=== PATIENT | female | born 1995 | race Caucasian/White ===

== ENCOUNTER 2019-07-09 18:02 | Emergency (ER) | payer BC ==
[2019-07-09] MEDS ORDERED: FAMOTIDINE 20 MG TABLET PO ONE (18:52)
[2019-07-09] MEDS ORDERED: DIPHENHYDRAMINE HCL 50 MG CAPSULE PO ONE (18:54)
--- NOTE | 2019-07-09 18:59 | ER Document Report ---
ED Medical Screen (RME) - General Chief Complaint: Hives Stated Complaint: HIVES Time Seen by Provider: 07/09/19 18:45 Notes: Patient is a 23-year-old female who presents the emergency department with a chief complaint of rash and hives. Patient states that she started with her hives about 3 days ago. She states that she has some shortness of breath. Patient has a past medical history of psoriatic arthritis. She states that she might of had an exposure for up to a new laundry detergent. Patient was also recently diagnosed with a urinary tract infection with group B strep and was placed on amoxicillin and Bactrim. She was also seen by urgent care yesterday and was placed on steroids. She is currently taking them. Patient currently takes Cosentyx and Paxil. Exam: Erythematous rash noted to entire body. Airway patent. Clear breath sounds throughout. I have greeted and performed a rapid initial assessment of this patient. A comprehensive ED assessment and evaluation of the patient, analysis of test results and completion of medical decision making process will be conducted by an additional ED providers. - Related Data Allergies/Adverse Reactions: No Known Allergies Allergy (Unverified 07/09/19 18:46) Physical Exam - Vital signs Vitals: Temp Pulse Resp BP Pulse Ox 98.4 F 83 20 114/74 98 07/09/19 18:13 07/09/19 18:13 07/09/19 18:13 07/09/19 18:13 07/09/19 18:13 Course - Vital Signs Vital signs: Temp Pulse Resp BP Pulse Ox 98.4 F 83 20 114/74 98 07/09/19 18:13 07/09/19 18:13 07/09/19 18:13 07/09/19 18:13 07/09/19 18:13
--- NOTE | 2019-07-09 19:10 | ER Document Report ---
ED Allergic Reaction - General Chief Complaint: Rash Stated Complaint: HIVES Time Seen by Provider: 07/09/19 18:45 Primary Care Provider: MILTON MAGUIRE DO [ACTIVE STAFF] - Follow up in 3-5 days JOSE BLACK MD [Primary Care Provider] - Follow up tomorrow TRAVEL OUTSIDE OF THE [place] IN LAST 30 DAYS: No - HPI Notes: 23-year-old female to the emergency department with complaints of hives that has been getting worse since yesterday. She states that she is currently taking Bactrim and amoxicillin for a group B infection. She states that she was put on these medicines after she presented to clinic with complaints of urinary tract infection. She states that her urinalysis was negative but culture revealed group B. She states that she is taken amoxicillin and Bactrim before and never had a problem. However about 2 days ago she broke out into this diffuse itchy rash. She states that she went to urgent care yesterday. She states that they started her on prednisone 20 mg tablets. She states that she was given a shot of steroids in office. She states that she has taken 20 mg of prednisone today. States she was not told to stop the antibiotics. She denies any difficulty swallowing or shortness of breath. She does admit that she is developed a sore throat in the past 2 days. She denies any nausea or vomiting or diarrhea. She denies any chest pain. She states that her dysuria did improve but now she is having a little bit more. Denies any fevers or chills. States that the rash is intensely itchy. - Related Data Allergies/Adverse Reactions: No Known Allergies Allergy (Unverified 07/09/19 18:46) Past Medical History - General Information source: Patient - Social History Smoking Status: Never Smoker Chew tobacco use (# tins/day): No Frequency of alcohol use: None Drug Abuse: None Lives with: Spouse/Significant other Family History: None Patient has suicidal ideation: No Patient has homicidal ideation: No Review of Systems - Review of Systems Constitutional: denies: Chills, Fever EENT: No symptoms reported Cardiovascular: denies: Chest pain, Palpitations, Orthopnea, Dyspnea, Syncope, Dizziness, Lightheaded Respiratory: denies: Cough, Short of breath Gastrointestinal: denies: Abdominal pain, Diarrhea, Nausea, Vomiting Genitourinary: Dysuria. denies: Frequency, Pain, Urgency Female Genitourinary: No symptoms reported Musculoskeletal: No symptoms reported Skin: See HPI, Rash Hematologic/Lymphatic: No symptoms reported Neurological/Psychological: denies: Weakness, Numbness, Tingling -: Yes All other systems reviewed and negative Physical Exam - Vital signs Vitals: Temp Pulse Resp BP Pulse Ox 98.4 F 83 20 114/74 98 07/09/19 18:13 07/09/19 18:13 07/09/19 18:13 07/09/19 18:13 07/09/19 18:13 Interpretation: Normal - General General appearance: Appears well, Alert In distress: None - HEENT Head: Normocephalic, Atraumatic Eyes: Normal Pupils: PERRL Ears: Normal External canal: Normal Tympanic membrane: Normal Sinus: Normal Nasal: Normal Mouth/Lips: Normal. No: Angioedema Mucous membranes: Normal Pharynx: Normal. No: Peritonsillar abscess, Post nasal drainage, Retropharyngeal abscess, Tonsillar hypertrophy, Uvular edema, Potential airway comprom. Neck: Normal, Supple. No: Lymphadenopathy Notes: no Alli's angina, no drooling, airway is grossly patent. - Respiratory Respiratory status: No respiratory distress Chest status: Nontender Breath sounds: Normal. No: Decreased air movement, Nonproductive cough, Rales, Rhonchi, Stridor, Wheezing Chest palpation: Normal - Cardiovascular Rhythm: Regular Heart sounds: Normal auscultation Murmur: No - Abdominal Inspection: Normal Distension: No distension Bowel sounds: Normal Tenderness: Nontender Organomegaly: No organomegaly - Back Back: Normal, Nontender. No: CVA tenderness - Skin Skin Temperature: Warm Skin Moisture: Dry Skin irregularity: Rash - There are diffuse erythematous macules to the arms and legs -- some appear to coalesce and all do josephine. There appears to wheal like appearances to some of these macules and some looks like erythema multiforme. There is no vesicular pattern. there is no sloughing of the skin. there is NO oral mucosal involvement. Patient does not report any pain with palpation Course - Re-evaluation Re-evalutation: 07/09/19 20:22 IMpression: Allergic reaction -- most concerning for an erythema multiforme vs urticaria. Suspect this is from one of the Antibiotics that the patient has been placed on. There are no oral lesions and there is no ulcerations to suggest SJS. She has completed the Bactrim, but still has some time on the Amoxicillin. Will encourage her to stop this medicine. Will start on a higher dose steroid. Will also cover with Atarax and pepcid. Will give follow up with dermatology. URged to return if symptoms worsen. Patient agrees with the plan. - Vital Signs Vital signs: Temp Pulse Resp BP Pulse Ox 98.4 F 83 20 114/74 98 07/09/19 18:13 07/09/19 18:13 07/09/19 18:13 07/09/19 18:13 07/09/19 18:13 Discharge - Discharge Clinical Impression: Allergic dermatitis, EM (erythema multiforme) Condition: Stable Disposition: HOME, SELF-CARE Instructions: Acute Allergic Reaction ([facility]) Additional Instructions: STOP ALL ANTIBIOTICS. RETURN IMMEDIATELY IF WORSENING RASH, PAIN WITH THE RASH, OR ORAL INVOLVEMENT OF THE RASH. STOP ALL ANTIBIOTICS. FOLLOW UP WITH DERMATOLOGY WITHOUT FAIL -- CALL TOMORROW. Prescriptions: Hydroxyzine HCl [Atarax 25 mg Tablet] 1 - 2 tab PO QID #25 tablet Prednisone [Deltasone 10 mg Tablet] 10 mg PO ASDIR PRN #21 tablet PRN Reason: Famotidine [Pepcid 20 mg Tablet] 20 mg PO BID #12 tablet Forms: Return to Work Referrals: JOSE BLACK MD [Primary Care Provider] - Follow up tomorrow MILTON AMGUIRE DO [ACTIVE STAFF] - Follow up in 3-5 days
[2019-07-09] MEDS ORDERED: METHYLPREDNISOLONE INJ 125 MG/2 ML SDV IM ONE (19:51)
[2019-07-09 20:54] LABS: APPEARANCE,URINE SLIGHTLY-CLOUDY; BILIRUBIN,URINE NEGATIVE (NEGATIVE); COLOR,URINE YELLOW; GLUCOSE, URINE NEGATIVE (NEGATIVE); KETONES,URINE TRACE mg/dL (NEGATIVE); LEUKOCYTE ESTERASE,URINE NEGATIVE (NEGATIVE); NITRITE,URINE NEGATIVE (NEGATIVE); PROTEIN,URINE NEGATIVE (NEGATIVE); URINE SPECIFIC GRAVITY 1.035
[2019-07-09 21:08] VITALS: BP 110/74
== END 2019-07-09 21:00 | disposition home or self-care (01) ==
LOC: ER 18:02
DX: L23.9 Allergic contact dermatitis, unspecified cause (principal); L51.9 Erythema multiforme, unspecified; R21 Rash and other nonspecific skin eruption; Z79.899 Other long term (current) drug therapy
CPT/HCPCS: 36415; 87070; 87086; 87880; 86308; 81001; J2930; 96372; 99283

== ENCOUNTER 2019-09-17 18:11 | Emergency (ER) | payer BC ==
[2019-09-17 18:16] VITALS: BP 141/86
--- NOTE | 2019-09-17 19:05 | ER Document Report ---
HPI - HPI Time Seen by Provider: 09/17/19 18:42 Pain Level: Denies Notes: Otherwise healthy 24-year-old female presented emergency department with episodes of blurred vision. Patient reports this is been happening intermittently over the last few weeks. Patient reports that she has been doing a lot of work and states that she thinks her eyes have been strained. She states that it is time for her to see an eye doctor and that she think she needs a new prescription. - CONSTITUTIONAL Constitutional: DENIES: Fever, Chills - EENT EENT: DENIES: Sore Throat, Ear Pain, Eye problems - NEURO Neurology: REPORTS: Headache - 2/ - CARDIOVASCULAR Cardiovascular: DENIES: Chest pain - RESPIRATORY Respiratory: DENIES: Trouble Breathing, Coughing - GASTROINTESTINAL Gastrointestinal: DENIES: Abdominal Pain, Black / Bloody Stools - URINARY Urinary: DENIES: Dysuria, Urgency, Frequency - REPRODUCTIVE LMP: August 28, 2019 Reproductive: DENIES: : - MUSCULOSKELETAL Musculoskeletal: DENIES: Extremity pain Past Medical History - General Information source: Patient - Social History Smoking Status: Never Smoker Chew tobacco use (# tins/day): No Frequency of alcohol use: None Drug Abuse: None Family History: None Patient has suicidal ideation: No Patient has homicidal ideation: No - Medical History Medical History: Negative Past Surgical History: Reports: Hx Orthopedic Surgery - left ankle/foot surgery - Immunizations Immunizations up to date: Yes Vertical Provider Document - CONSTITUTIONAL Notes: PHYSICAL EXAMINATION: GENERAL: Well-appearing, well-nourished and in no acute distress. HEAD: Atraumatic, normocephalic. EYES: Pupils equal round extraocular movements intact, conjunctiva are normal. No evidence of corneal abrasion or retained foreign body. ENT: Nares patent NECK: Normal range of motion LUNGS: No respiratory distress Musculoskeletal: Normal range of motion NEUROLOGICAL: Normal speech, normal gait. PSYCH: Normal mood, normal affect. SKIN: Warm, Dry, normal turgor, no rashes or lesions noted. - INFECTION CONTROL TRAVEL OUTSIDE OF THE [place] IN LAST 30 DAYS: No Course - Re-evaluation Re-evalutation: Eye exam was performed utilizing fluorescein stain. No uptake noted. Patient encouraged to follow-up with ophthalmology to have a repeat eye exam performed as likely her intermittent blurred vision is from wearing improper glasses. Patient verbalizes and agrees with this. Patient discharged home in stable condition. - Vital Signs Vital signs: Temp Pulse Resp BP Pulse Ox 98.2 F 75 18 141/86 H 100 09/17/19 18:39 12 18:39 12 18:39 12 18:39 09/17/19 18:39 Discharge - Discharge Clinical Impression: Blurred vision Condition: Stable Disposition: HOME, SELF-CARE Additional Instructions: There were no abnormalities found on your physical examination. Please continue to wear your glasses as prescribed. It is time for you to follow-up with your regional extension service specialist to have a new comprehensive eye exam done, likely your prescription has changed. Try not to strain your eyes too much in the meantime. Referrals: JOSE BLACK MD [Primary Care Provider] - Follow up as needed
== END 2019-09-17 19:18 | disposition home or self-care (01) ==
LOC: ER 18:11
DX: H53.8 Other visual disturbances (principal); R51 Headache
CPT/HCPCS: 99283